=== PATIENT | male | born 1945 | race Caucasian/White ===

== ENCOUNTER → 2018-07-25 | Outpatient (CLI) | payer MEDICARE, BC ==
[~2018-07-25] MED LIST: AMLODIPINE BESYL5 MG PO; CLOPIDOGREL75 MG PO; DOXAZOSIN MESYLA2 MG PO; HYDRALAZINE HCL10 MG PO; HYDROCHLOROTHIA25 MG PO; IOPAMIDOL 370 MG/ML 200 ML INFUS..BTL INJ ONE; NOVOLOG MI100 UNITS/; OMEPRAZOLE40 MG PO; SIMVASTATIN20 MG PO; SODIUM CHLORIDE 0.9% 500ML 500 ML ONE; SODIUM CHLORIDE 0.9% 50ML 50 ML ONE; VASOTEC10 M1 PO
--- NOTE | 2018-07-25 14:03 | Diagnostic Imaging Report ---
EXAMINATION: CT of the abdomen and pelvis with contrast. TECHNIQUE: Spiral CT images of the abdomen and pelvis were performed from the lung bases to the lesser trochanters after the intravenous administration of 100 cc of Isovue-370 and the oral administration of water. Coronal and sagittal reformatted images were obtained. COMPARISON: Abdominal ultrasound 06/06/2015 CLINICAL HISTORY:anemia DISCUSSION: ABDOMEN/PELVIS: LOWER THORAX:Trace left pleural effusion. Pacer or AICD leads partially visualized. HEPATOBILIARY: Subtle nodularity to the external hepatic contour with relative hypertrophy of the left lobe. No focal hepatic lesion. Hepatic parenchyma is diffusely hypoattenuating relative to the spleen, compatible with steatosis. Radiopaque calculus in the dependent portion of the gallbladder without wall thickening or adjacent inflammatory change. SPLEEN: The spleen is enlarged, measuring 17 cm in craniocaudal span area no focal splenic lesion. PANCREAS: No focal masses or ductal dilatation. ADRENALS: No adrenal nodules. KIDNEYS/URETERS: No hydronephrosis, stones, or solid mass lesions. PELVIC ORGANS/BLADDER: Urinary bladder is unremarkable. Mass effect on the right side of the bladder related to reservoir for penile augmentation device. The prostate is enlarged, measuring 5.3 cm transversely. PERITONEUM/RETROPERITONEUM: Small volume. Splenic ascites. No free air. LYMPH NODES: No pelvic sidewall, retroperitoneal, or mesenteric lymphadenopathy. Retroperitoneal and mesenteric lymph nodes are increased in number but not enlarged by CT criteria. VESSELS: Mild atherosclerotic calcification of the abdominal aorta without aneurysmal dilatation. 2 right renal arteries and a single left renal artery. Portal vein, splenic vein, and central superior mesenteric vein are patent. Small esophageal varix is suspected as seen on series 2 image 10. GI TRACT: The large bowel shows no evidence of distention or wall thickening. Gas and fecal material are noted throughout. The appendix is normal. Hyperattenuating focus within the gastric antrum seen on series 2 image 33. No small bowel dilatation to suggest obstruction. BONES AND SOFT TISSUE: No osseous destructive lesions. Postlaminectomy changes with associated degenerative facet arthropathy of the lower lumbar spine. No focal soft tissue abnormalities. IMPRESSION: Findings suggestive of cirrhosis with portal hypertension evidenced by splenomegaly, trace ascites and left pleural effusion, and suspected esophageal varix as detailed above. Background hepatic steatosis. Small hyperdense focus in the gastric antrum may represent ingested contents, though a small polyp is an additional consideration. Upper endoscopy should be considered for further evaluation. Cholelithiasis. Prostatomegaly. Atherosclerotic vascular disease. Signed by: Dr. Oseas Rudolph M.D. on 07/25/2018 1:59 PM
== END ==
LOC: CT 11:49
PROVIDERS: ATTEND Internal Medicine Gastroenterology
DX: D50.9 Iron deficiency anemia, unspecified (principal); I85.00 Esophageal varices without bleeding
CPT/HCPCS: 74177; 96360; J7040; Q9967

== ENCOUNTER 2018-11-01 05:19 | Observation (INO) | payer MEDICARE, BC ==
[~2018-11-01] VITALS: Ht 175.3 cm; Wt 77.1 kg
[2018-11-01] VITALS (7 sets, daily range): BP systolic 119–132; BP diastolic 58–60
[~2018-11-01 05:19] MED LIST changes: -IOPAMIDOL 370 MG/ML 200 ML INFUS..BTL INJ ONE; -SODIUM CHLORIDE 0.9% 500ML 500 ML ONE; -SODIUM CHLORIDE 0.9% 50ML 50 ML ONE
--- OUTSIDE RECORDS SUMMARY | 2018-11-01 05:22 | XMS REPORT ---
Author Author [facility] Address Unknown Phone Unavailable Care Team Providers Care Fur Repairer Name Role Phone ERICKA FORREST Unavailable Unavailable Problems This patient has no known problems. Allergies, Adverse Reactions, Alerts This patient has no known allergies or adverse reactions. Medications This patient has no known medications. Results Test Description Test Time Test Comments Text Results Atomic Results Result Comments CT ABDOMEN/PELVIS W 2018-07-25 13:47:[address] [address] Patient Name: MELI DAVIS JR MR #: [id number] : 1945 Age/Sex: 73/M Req #: [id number] Adm Physician: Ordered by: ERICKA FORREST MD Report #: [id number] Location: CT Room/Bed: Procedure: [id number] CT/CT ABDOMEN/PELVIS W Exam Date: Exam Time: REPORT STATUS: Signed EXAMINATION: CT of the abdomen and pelvis with contrast. TECHNIQ UE: Spiral CT images of the abdomen and pelvis were performed from the lung bases to the lesser trochanters after the intravenous administration of 100 cc of Isovue-370 and the oral administration of water. Coronal and sagittal reformatted images were obtained. COMPARISON: Abdominal ultrasound 06/06/2015 CLINICAL HISTORY:anemia DISCUSSION: ABDOMEN/PELVIS: LOWER THORAX:Trace left pleural effusion. Pacer or AICD leads partially visualized. HEPATOBILIARY: Subtle nodularity to the external hepatic contour with relative hypertrophy of the left lobe. No focal hepatic lesion. Hepatic parenchyma is diffusely hypoattenuating relative to the spleen, compatible with steatosis. Radiopaque calculus in the dependent portion of the gallbladder without wall thickening or adjacent inflammatory change. SPLEEN: The spleen is enlarged, measuring 17 cm in craniocaudal span area no focal splenic lesion. PANCREAS: No focal masses or ductal dilatation. ADRENALS: No adrenal nodules. KIDNEYS/URETERS: No hydronephrosis, stones, or solid mass lesions. PELVIC ORGANS/BLADDER: Urinary bladder is unremarkable. Mass effect on the right side of the bladder related to reservoir for penile augmentation device. The prostate is enlarged, measuring 5.3 cm transversely. PERITONEUM/RETROPERITONEUM: Small volume. Splenic ascites. No free air. LYMPH NODES: No pelvic sidewall, retroperitoneal, or mesenteric lymphadenopathy. Retroperitoneal and mesenteric lymph nodes are increased in number but not enlarged by CT criteria. VE SSELS: Mild atherosclerotic calcification of the abdominal aorta without aneurysmal dilatation. 2 right renal arteries and a single left renal artery. Portal vein, splenic vein, and central superior mesenteric vein are patent. Small esophageal varix is suspected as seen on series 2 image 10. GI TRACT: The large bowel shows no evidence of distention or wall thickening. Gas and fecal material are noted throughout. The appendix is normal. Hyperattenuating focus within the gastric antrum seen on series 2 image 33. No small bowel dilatation to suggest obstruction. BONES AND SOFT TISSUE: No osseous destructive lesions. Postlaminectomy changes with associated degenerative facet arthropathy of the lower lumbar spine. No focal soft tissue abnormalities. IMPRESSION: Findings suggestive of cirrhosis with portal hypertension evidenced by splenomegaly, trace ascites and left pleural effusion, and suspected esophageal varix as detailed above. Background hepatic steatosis. Small hyperdense focus in the gastric antrum may represent ingested contents, though a small polyp is an additional consideration. Upper endoscopy should be considered for further evaluation. Cholelithiasis. Prostatomegaly. Atherosclerotic vascular disease. Signed by: Dr. Hansel Munroe M.D. on 07/25/2018 1:59 PM Dictated By: HANSEL MUNROE MD [id number] Transcribed By: BIRDIE on 07/25/18 1358 COPY TO: ERICKA FORREST MD
[2018-11-01] MEDS ORDERED: PANTOPRAZOLE 40 MG 10ML VIAL IV STA (05:27)
[2018-11-01] MEDS ORDERED: ONDANSETRON HCL INJ 2MG/ML 2ML 2 MG/ML VIAL IV STA (05:27)
[2018-11-01] MEDS ORDERED: DIPHENHYDRAMINE HCL INJ 50 MG/ML VIAL IV ONE (05:30)
[2018-11-01] MEDS ORDERED: METOCLOPRAMIDE HCL 10 MG/2ML VIAL IV ONE (05:30)
[2018-11-01] MEDS ORDERED: SODIUM CHLORIDE 0.9% 500ML 500 ML IV ONE (05:45)
[2018-11-01 05:46] LABS: BASOPHILS % 0.3 % (0.0-1.0); EOSINOPHILS # (AUTO) 0.2 (0.0-0.4); EOSINOPHILS % 3.2 % (0.0-6.0); HEMATOCRIT 35.3 % (38.2-49.6); LYMPHOCYTES # (AUTO) 0.9 (1.0-3.2); LYMPHOCYTES % 13.3 % (18.0-39.1); MEAN CORPUSCULAR HEMOGLOBIN 32.7 pg (28-32); MEAN CORPUSCULAR VOLUME 96.2 fL (81-99); MONOCYTES # (AUTO) 0.5 (0.2-0.8); MONOCYTES % 7.5 % (4.4-11.3); NEUTROPHILS # (AUTO) 4.9 (2.1-6.9); NEUTROPHILS % 75.4 % (38.7-80.0); PLATELET COUNT 104 x10e3/uL (140-360); RED BLOOD COUNT 3.67 x10e6/uL (4.3-5.7); RED CELL DISTRIBUTION WIDTH 13.2 % (11.7-14.4)
[2018-11-01] MEDS ORDERED: SODIUM CHLORIDE 0.9% 500ML 500 ML ONE (05:47)
[2018-11-01] MEDS ORDERED: FUROSEMIDE40 MG PO (05:49)
[2018-11-01] MEDS ORDERED: METOPROLOL TART50 MG PO (05:50)
[2018-11-01] MEDS ORDERED: SPIRONOLACTONE25 MG PO (05:52)
[2018-11-01] MEDS ORDERED: NOVOLOG MI100 UNIT/1 SQ ×2 (05:52)
[2018-11-01] MEDS ORDERED: ACTOS15 MG PO (05:57)
[2018-11-01 05:59] LABS: INR 1.08; PROTHROMBIN TIME 14.5 seconds (11.9-14.5)
[2018-11-01 06:00] LABS: PARTIAL THROMBOPLASTIN TIME 34.1 seconds (23.8-35.5)
[2018-11-01 06:08] LABS: ALBUMIN 3.9 g/dL (3.5-5.0); ANION GAP 14.1 mmol/L (8-16); CALCIUM 9.8 mg/dL (8.4-10.2); CREATININE, SERUM 2.28 mg/dL (0.72-1.25); MAGNESIUM 2.4 MG/DL (1.3-2.1); POTASSIUM 5.1 mmol/L (3.5-5.1)
--- NOTE | 2018-11-01 06:19 | Diagnostic Imaging Report ---
EXAMINATION: CHEST SINGLE (PORTABLE) INDICATION: Pain. Hiccups for a week. COMPARISON: None FINDINGS: TUBES and LINES: None. Dual lead left-sided cardiac pacemaker. LUNGS: Lungs are well inflated. Lungs are clear. There is no evidence of pneumonia or pulmonary edema. PLEURA: No pleural effusion or pneumothorax. HEART AND MEDIASTINUM: The cardiomediastinal silhouette is unremarkable. BONES AND SOFT TISSUES: No acute osseous lesion. UPPER ABDOMEN: No free air under the diaphragm. IMPRESSION: No acute thoracic abnormality. Signed by: Dr. Leonid Cabrera M.D. on 11/01/2018 6:16 AM
[2018-11-01] MEDS ORDERED: BACLOFEN 10 MG TAB PO STA (06:24)
[2018-11-01 06:28] LABS: CREATINE KINASE MB 2.6 ng/mL (0-5.0); THYROID STIMULATING HORMONE 1.686 uIU/mL (0.350-4.940)
[2018-11-01 06:41] LABS: BILIRUBIN,URINE NEGATIVE (NEGATIVE); CLARITY,URINE CLEAR (CLEAR); COLOR,URINE YELLOW (YELLOW); KETONES,URINE NEGATIVE (NEGATIVE); LEUKOCYTE ESTERASE ,URINE NEGATIVE (NEGATIVE); NITRITE,URINE NEGATIVE (NEGATIVE); PROTEIN,URINE DIPSTICK NEGATIVE (NEGATIVE); URINE UROBILINOGEN 0.2 mg/dL (0.2 - 1)
[2018-11-01 07:01] LABS: EPITHELIAL CELLS,URINE RARE /LPF
--- NOTE | 2018-11-01 07:03 | NUR ---
assumed care of pt
[2018-11-01] MEDS ORDERED: ONDANSETRON HCL INJ 2MG/ML 2ML 2 MG/ML VIAL IV PRN (07:15)
[2018-11-01] MEDS ORDERED: DIPHENHYDRAMINE HCL INJ 50 MG/ML VIAL IV PRN (07:15)
[2018-11-01] MEDS ORDERED: SODIUM CHLORIDE 0.9% 1000ML 1,000 ML IV ONE (07:15)
--- NOTE | 2018-11-01 07:22 | NUR ---
second set of blood cx collected and taken to the lab
--- NOTE | 2018-11-01 07:29 | Diagnostic Imaging Report ---
History:Loss of balance. Hiccups for one week. Comparison studies:None Technique: Axial images were obtained from the skull base to the vertex. Coronal and sagittal images reconstructed from the axial data. Intravenous contrast: None Dose modulation, iterative reconstruction, and/or weight based adjustment of the mA/kV was utilized to reduce the radiation dose to as low as reasonably achievable. Findings: Scalp/skull: No abnormalities. Extra-axial spaces: No masses. No fluid collections. Brain sulci: Mildly prominent. Ventricles: Mild compensatory dilatation. No hydrocephalus. Parenchyma: Scattered smallhypodensities in the supratentorial white matter are small vessel ischemic changes. Small chronic lacunar infarcts at the right thalamus, bilateral thalamocapsular region and right posterior name of internal capsule. No masses, hemorrhage, acute or chronic cortical vascular insults. Sellar/suprasellar region: No abnormalities. Craniocervical junction: Patent foramen magnum. No Chiari one malformation. Incidental findings: Atherosclerotic calcifications in the carotid siphons . Impression: No acute abnormalities. Chronic findings: 1. Mild generalized volume loss. 2. Mild supratentorial white matter small vessel ischemic changes. 3. Small chronic lacunar infarcts at the bilateral basal ganglia. Signed by: DR Garry Hernández M.D. on 11/01/2018 7:26 AM
[2018-11-01] MEDS ORDERED: METOCLOPRAMIDE HCL 10 MG TAB PO SCH (07:30)
[2018-11-01] MEDS ORDERED: DIATRIZOATE MEGL/DIATRIZOA SOD 30 ML BTL PO ONE (07:51)
--- NOTE | 2018-11-01 08:35 | NUR ---
Pt is eating breakfast at bedside and has no needs at this time. is at bedside.
[2018-11-01] MEDS ORDERED: PANTOPRAZOLE 40 MG 10ML VIAL IV SCH (09:00)
--- NOTE | 2018-11-01 09:05 | NUR ---
Attempted report, Nurse passing meds and not ready for report
--- NOTE | 2018-11-01 09:36 | NUR ---
Report to SUE Granados
--- NOTE | 2018-11-01 09:45 | NUR ---
RECEIVED PATIENT FROM ER. PATIENT A/O X3, EVEN RESPIRATIONS ON RA. BOWEL SOUNDS ACTIVE, SKIN INTACT, NO EDEMA. PATIENT AMBULATES WITH MINIMAL ASSISTANCE. LEFT FA 20 GAUGE WITH IVF @ 50 CC/HR, INTACT/PATENT. LEFT WRIST 20 GAUGE IV SL INTACT/PATENT. NO PAIN OR DISCOMFORT AT THIS TIME. EDUCATED PATIENT TO CALL FOR ASSISTANCE. CALL LIGHT IN REACH, BED LOW, WHEELS LOCKED, SIDE RAILS X2. WILL CONTINUE TO MONITOR PATIENT.
--- NOTE | 2018-11-01 10:01 | Diagnostic Imaging Report ---
EXAMINATION: CT of the abdomen and pelvis without contrast TECHNIQUE: Spiral CT images of the abdomen and pelvis were performed from the lung bases to the lesser trochanters without intravenous contrast. Gastrografin oral contrast was administered. Lack of intravenous contrast limits evaluation of vascular and visceral structures. Coronal and sagittal reformatted images were obtained. COMPARISON: CT abdomen/pelvis 07/25/2018. CLINICAL HISTORY: Hiccups x1 week. DISCUSSION: LOWER THORAX: Interval resolution of trace left pleural effusion. Partially seen pacemaker leads. HEPATOBILIARY: Subtle nodularity to the external hepatic contour with relative hypertrophy of the left lobe, as before. No evidence of focal hepatic lesion. No evidence of ductal dilatation. Cholelithiasis without CT evidence of cholecystitis. SPLEEN: The spleen is enlarged, measuring up to 16.5 cm. PANCREAS: No focal masses or ductal dilatation. ADRENALS: No adrenal nodules. KIDNEYS/URETERS: No hydronephrosis, stones, or solid mass lesions. PELVIC ORGANS/BLADDER: Urinary bladder is unremarkable. Mass effect on the right side of the bladder secondary to reservoir for penile augmentation device. The prostate is enlarged, measuring 5.3 cm transversely. PERITONEUM/RETROPERITONEUM: Trace upper abdominal ascites. No free air. LYMPH NODES: No evidence of lymphadenopathy. VESSELS: There are scattered atherosclerotic calcifications in the aorta and branch vessels. GI TRACT: No evidence of bowel distention or wall thickening. The appendix is normal. Previously noted hyperattenuating focus within the gastric antrum is not visualized in the absence of intravenous contrast. BONES AND SOFT TISSUE: No acute osseous abnormality. Postlaminectomy changes with associated degenerative facet changes of the lower lumbar spine. IMPRESSION: Findings of cirrhosis with portal hypertension as demonstrated by splenomegaly and trace ascites. Hepatic steatosis. Previously noted hyperdense focus within the gastric antrum is not well-visualized in the absence of IV contrast. Please refer to the prior CT report for further details. Signed by: Dr. Ronit Ireland MD on 11/01/2018 9:58 AM
[2018-11-01] MEDS ORDERED: DEXTROSE 50% SYRINGE 50 ML IV PRN (11:30)
[2018-11-01] MEDS ORDERED: CHLORPROMAZINE HCL INJ 25 MG/ML AMP INJ STA (12:04)
[2018-11-01] MEDS ORDERED: FUROSEMIDE 40 MG TAB PO PRN (12:15)
[2018-11-01] MEDS ORDERED: CHLORPROMAZINE HCL 25 MG TAB PO PRN ×2 (12:15)
[2018-11-01] MEDS: SODIUM CHLORIDE 0.9% 1000ML 1,000 ML IV SCH ×2 (12:15→19:34)
[2018-11-01] MEDS: INSULIN LISPRO 100 UNIT/1 ML 3ML VIAL SQ SCH ×3 (12:49→21:00)
[2018-11-01] MEDS ORDERED: CHLORPROMAZINE HCL INJ 25 MG in SODIUM CHLORIDE 0.9% 50ML 50 ML IV ONE (13:00)
--- NOTE | 2018-11-01 13:25 | Consultation ---
DATE OF CONSULTATION: 11/01/2018 HISTORY OF PRESENT ILLNESS: A 73-year-old gentleman, known to our Nephrology service, underlying history of CKD, admitted with nausea and intractable hiccups. Lying supine. Renal consulted for management of kidney failure. Labs show white count 6.5, hemoglobin 12. Chemistry; sodium 132, potassium 5.1, creatinine 2.28 with a magnesium 2.4. Total bilirubin 1.5, AST of 36 with an alkaline phosphatase of 101. Globulins elevated. Total protein 7.9, lipase 36, and TSH 1686. He is currently lying supine, the only complaint he has is of hiccups. He denies shortness of breath, nausea, vomiting, fever, or chills at this point in time. Further workup includes urinalysis, shows pH 7.5, specific gravity 1.010. Urine microscopy benign. ALLERGIES: TO PENICILLIN. CURRENT MEDICATIONS: The patient is on normal saline 125 mL an hour. He is on baclofen 10 mg p.o. stat. He is on diphenhydramine one time dose, metoclopramide 1 time dose, also on metoclopramide 10 mg p.o. q.a.c. and h.s., Protonix 40 mg IV q.12 h., Zofran p.r.n. SOCIAL HISTORY: The patient does not smoke or drink. FAMILY HISTORY: Significant for hypertension. PAST MEDICAL HISTORY: He has past history of hypertension, chronic kidney disease stage 3, GERD, type 2 diabetes, hyperlipidemia. HOME MEDICATIONS: Include spironolactone, simvastatin, pioglitazone, pantoprazole, metoprolol, hydralazine, doxazosin, furosemide p.r.n. PHYSICAL EXAMINATION: GENERAL: Awake, alert. IMPRESSION AND PLAN: Acute on chronic kidney failure, mild hyperkalemia, intractable hiccups. I will discontinue Reglan for fear of interaction. Continue with normal saline at 100 mL an hour, place on a renal diet. We will obtain clinic records. MD ALMA Paredes/DYAN /[id number]
[2018-11-01 13:49] LABS: CREATINE KINASE MB 3.1 ng/mL (0-5.0)
[2018-11-01] MEDS: HYDRALAZINE HCL 10 MG TAB PO SCH (16:15)
[2018-11-01] MEDS: METOPROLOL TARTRATE 50 MG TAB PO SCH (16:16)
[2018-11-01] MEDS ORDERED: ENOXAPARIN SOD INJ 40 MG/0.4 ML SYR SC SCH (17:00)
--- NOTE | 2018-11-01 17:01 | History and Physical ---
CHIEF COMPLAINT: Abdominal pain, hiccups. HISTORY OF PRESENT ILLNESS: This is 73-year-old male. He reports known history of acid reflux and hypertension, who has been following up with a primary care physician as an outpatient as well as a liver specialist for liver cirrhosis, who presents to the ED with underlying hiccups, abdominal distention and weight loss. The patient reports he sees Dr. Coombs, who is his GI specialist, for the liver cirrhosis of unknown etiology. He reports having significant amount of hiccups as well over the last several days and has difficulty with his appetite. He reports losing approximately 30 pounds over the last one month. He did see the GI specialist two months ago, but did not tell him the cause or etiology of his liver cirrhosis. The patient was seen and evaluated at bedside on the medical floor. He is currently doing well. He has no other complaints at this current moment. Imaging studies consistent with liver cirrhosis and splenomegaly. I have discussed these findings with the patient at bedside with the nurse present. REVIEW OF SYSTEMS: Pertinent positives: Hiccups, abdominal distention, weight loss. Pertinent negatives: Denies any chest pain, palpitation, nausea, vomiting, diarrhea, dysuria, hematuria, frequency, urgency, lightheadedness, dizziness, abdominal pain, headaches, shortness of breath, cough, congestion, fever, or any other complaints. The rest of 14-point review of systems have been reviewed with the patient and are negative. ALLERGIES: PENICILLIN. HOME MEDICATIONS: Doxazosin 1 mg daily, furosemide 40 mg daily, hydralazine 10 mg b.i.d., metoprolol 50 mg b.i.d., omeprazole 40 mg daily, Actos 15 mg daily, simvastatin 20 mg daily, and Aldactone 100 mg daily. PAST MEDICAL HISTORY: Type 2 diabetes, hypertension, liver cirrhosis of unknown etiology. PAST SURGICAL HISTORY: Reports none. FAMILY HISTORY: Hypertension and diabetes. SOCIAL HISTORY: No drugs. No alcohol. Does not smoke. He is . Good social support. PHYSICAL EXAMINATION: VITAL SIGNS: Temperature is 95.2, pulse 68, respiratory rate is 18, blood pressure is 132/60, and pulse ox is 100% on room air. GENERAL: Not in acute distress. Alert and oriented x3. Cooperative on examination. HEENT: Head is normocephalic and atraumatic. Eyes; pupils are equal, round, and reactive to light bilaterally. Extraocular movements are intact bilaterally. Throat, no evidence of erythema or exudates in the posterior pharynx. Has poor dentition. NECK: Supple. Good range of motion. PULMONARY: Clear to auscultation bilaterally. No wheezing, no rales, no rhonchi, no crackles appreciated. CARDIOVASCULAR: Positive S1, S2. No murmurs, rubs, or gallops appreciated. ABDOMEN: Soft, nondistended, and nontender to palpation. Bowel sounds present. MUSCULOSKELETAL: Strength is 5/5 throughout. No evidence of any muscle deficits on examination. No weakness appreciated. NEUROLOGICAL: Cranial nerves 2 through 12 grossly intact. No evidence of any neurological deficits on exam. SKIN: Intact. Warm to touch. Good cap refill. PSYCHIATRIC: Normal affect and mood. EXTREMITIES: No edema. Good range of motion throughout. LABORATORY DATA: Labs show white count 6.5, hemoglobin 12, hematocrit is 35, platelets of 104. Coagulation; PT 14, INR 1, PTT 34. Chemistry; sodium 133, potassium 5.1, chloride 99, bicarb 24, anion gap of 14, BUN 21, creatinine is 2.2, glucose 119, lactic acid is 12 and normal, calcium 9.8, magnesium 2.4. Total bilirubin is 1.5, AST 36, ALT 28, alkaline phosphatase is 101. Troponins are negative. Albumin 3.9, lipase 36, amylase 62. TSH 1.6. Urinalysis negative. MICROBIOLOGY: Blood and urine cultures are pending. IMAGING STUDIES: Chest x-ray found to be negative. CT brain negative for any acute findings. CT abdomen and pelvis without contrast shows findings of cirrhosis with portal hypertension as demonstrated by splenomegaly and trace ascites. Hepatic steatosis. Previously noted hyperdense focus within the gastric antrum is not well visualized please refer to prior CTs for further details. IMPRESSION: 1. Liver cirrhosis with underlying splenomegaly, unknown etiology. 2. Hiccups likely due to underlying ascites. 3. Stage 4 chronic kidney disease. 4. Type 2 diabetes. 5. Hypertension. PLAN: At this time, from a liver cirrhosis standpoint, GI has been consulted. The etiology of his cirrhosis is unknown. Apparently, he has been following up with GI specialist as an outpatient and was not told. We will get a GI specialist here to evaluate him closely. He also endorses significant weight loss over the last one month. He does endorse having EGD and colonoscopy two months ago at Dr. Coombs's office. At this time, we will see if GI can help us further on this patient's case. He does have underlying CKD in which we will go ahead and get Nephrology to evaluate him closely. There is no evidence of any hiccups this morning, in the event it does, I have told the nurse to call me. We can start him on Thorazine. Continue insulin sliding scale, Accu-Cheks, A1c for underlying diabetes. Monitor blood pressure closely. PT and OT daily. Lovenox for DVT prophylaxis. MD JORDY Benitez/DYAN /[id number]
--- NOTE | 2018-11-01 19:37 | NUR ---
Received patient in bed aaox3. No resp distress at this time. Denies pain. Call light within reach and instructed to call for assistance. Patient verbalized understanding.
[2018-11-01 19:50] LABS: CREATINE KINASE MB 2.6 ng/mL (0-5.0)
[2018-11-01] MEDS ORDERED: SIMVASTATIN 20 MG TAB PO SCH (21:00)
[2018-11-02 00:15] VITALS: BP 122/58
[2018-11-02 04:12] VITALS: BP 140/60
[2018-11-02] MEDS: SODIUM CHLORIDE 0.9% 1000ML 1,000 ML IV SCH (05:19)
[2018-11-02 05:31] LABS: EOSINOPHILS # (AUTO) 0.1 (0.0-0.4); HEMATOCRIT 30.4 % (38.2-49.6); HEMOGLOBIN 10.4 g/dL (14.0-18.0); LYMPHOCYTES % 24.9 % (18.0-39.1); MEAN CORPUSCULAR HEMOGLOBIN 33.4 pg (28-32); MEAN CORPUSCULAR HGB CONC 34.2 g/dL (31-35); MEAN CORPUSCULAR VOLUME 97.7 fL (81-99); MONOCYTES # (AUTO) 0.4 (0.2-0.8); MONOCYTES % 10.3 % (4.4-11.3); NEUTROPHILS # (AUTO) 2.4 (2.1-6.9); NEUTROPHILS % 60.5 % (38.7-80.0); PLATELET COUNT 82 x10e3/uL (140-360); RED BLOOD COUNT 3.11 x10e6/uL (4.3-5.7); RED CELL DISTRIBUTION WIDTH 13.2 % (11.7-14.4)
[2018-11-02 05:46] LABS: ALBUMIN 3.4 g/dL (3.5-5.0); ANION GAP 10.7 mmol/L (8-16); CALCIUM 9.1 mg/dL (8.4-10.2); CREATININE, SERUM 2.15 mg/dL (0.72-1.25); POTASSIUM 4.7 mmol/L (3.5-5.1)
[2018-11-02] MEDS ORDERED: PANTOPRAZOLE SOD 40 MG TABEC PO SCH (07:30)
[2018-11-02] MEDS: INSULIN LISPRO 100 UNIT/1 ML 3ML VIAL SQ SCH (08:15)
[2018-11-02] MEDS: HYDRALAZINE HCL 10 MG TAB PO SCH (08:37)
[2018-11-02] MEDS: METOPROLOL TARTRATE 50 MG TAB PO SCH (08:37)
[2018-11-02] MEDS ORDERED: PIOGLITAZONE HCL 15 MG TAB PO SCH (09:00)
[2018-11-02] MEDS ORDERED: SPIRONOLACTONE 25 MG TAB PO SCH ×2 (09:00)
[2018-11-02] MEDS ORDERED: DOXAZOSIN MESYLATE 2 MG TAB PO SCH (09:00)
[2018-11-02] MEDS ORDERED: FUROSEMIDE 40 MG TAB PO SCH (09:00)
[2018-11-02 09:32] VITALS: BP 145/68
[2018-11-02 09:37] VITALS: BP 145/68
[2018-11-02 09:38] VITALS: BP 145/68
--- NOTE | 2018-11-02 10:29 | NUR ---
IMM ON CHART
--- NOTE | 2018-11-02 12:25 | Consultation ---
DATE OF CONSULTATION: 11/02/2018 HISTORY OF PRESENT ILLNESS: This is a 73 years old, who supposedly has history of reflux, hypertension, and history of cirrhosis, who presented to the hospital apparently because of problem with the hiccups. The patient denies any abdominal pain, nausea, or vomiting. He apparently has some weight loss. His workup so far revealed that he has pancytopenia and renal insufficiency. His CAT scan shows significance of cirrhosis with portal hypertension. He apparently had an EGD and colonoscopy by Dr. Coombs about two months ago and he did have abdominal ultrasounds from May, which shows splenomegaly and fatty liver. He is currently doing better, hiccups is totally resolved. PAST MEDICAL HISTORY: Significant for history of cirrhosis and probably grade 2 fatty liver, history of acid reflux, history of hypertension. He also has history of diabetes. ALLERGIES: PENICILLIN. SOCIAL HISTORY: No alcohol use. MEDICATIONS: On admission including doxazosin, Lasix, hydralazine, metoprolol, omeprazole, Actos, simvastatin, and Aldactone. FAMILY HISTORY: Hypertension and diabetes. REVIEW OF SYSTEMS: He denies any chest pain. Denies any shortness of breath. Denies any dysphagia or odynophagia. Denies any dysuria, hematuria, or any kind of syncopal episode. PHYSICAL EXAMINATION: GENERAL: The patient is awake, alert, appears to be stable, not in acute distress at this point. VITAL SIGNS: Afebrile currently with stable vital signs. HEAD, EYES, EARS, NOSE, AND THROAT: Normocephalic. Sclera is anicteric. NECK: Supple. HEART: Regular. LUNGS: Clear. ABDOMEN: Soft. There is no distention at this point and is nontender. EXTREMITIES: No cyanosis. No clubbing. LAB VALUES: PT 14.5, INR 1.08. BUN of 35, creatinine of 2.15, bilirubin 1.6. AST and ALT are normal. WBC of 3.97, hemoglobin of 10.4, hematocrit of 30.4, platelet count of 82. CT scan of the abdomen and pelvis shows evidence of cirrhosis with portal hypertension. IMPRESSION: 1. Hiccups, seems to be resolved at this point. 2. History of cirrhosis probably secondary to fatty liver. 3. History of reflux. RECOMMENDATION: Continue on current care at this point with PPIs. Follow labs and clinically. The patient should be able to go home soon if no more problem. MD JOHN Yeager/DYAN /[id number] cc: MD Blayne Benitez MD
[2018-11-02 13:53] VITALS: BP 157/72
[2018-11-02] MEDS ORDERED: ONDANSETRON HCL 4 MG ORAL DISINTEGRATING TAB PO PRN (15:15)
--- NOTE | 2018-11-03 04:44 | Discharge Summary ---
FINAL DISCHARGE DIAGNOSES: 1. Liver cirrhosis secondary to fatty liver with underlying splenomegaly. 2. Hiccups secondary likely due to ascites, now all improved. 3. Stage IV chronic kidney disease. 4. Type 2 diabetes. 5. Hypertension. 6. Thrombocytopenia. CONSULTANTS: GI and Nephrology. PHYSICAL EXAMINATION: VITAL SIGNS: Temperature is 96.9, pulse 86, respiratory rate is 20, blood pressure 157/70, pulse ox 99% on room air. LAB FINDINGS: Show a white count of 3.9, hemoglobin 10.4, hematocrit 30, platelets of 82. Coagulation, PT 14, INR 1, PTT 34. Chemistry; sodium 133, potassium 4.7, chloride 106, bicarb 24, anion gap of 10, BUN is 35, creatinine is 2.1, glucose is 130, calcium 9.1, total bilirubin was 1.6. LFTs were normal. Troponins were negative. Albumin 3.4, lipase is 36. TSH is 1.6. Urinalysis was negative. MICROBIOLOGY: Blood cultures were negative. Urine cultures were negative. Chest x-rays were negative. CT brain was found to be negative. CT abdomen and pelvis without contrast shows findings with cirrhosis with portal hypertension as demonstrated by splenomegaly and trace ascites. Hepatic steatosis. He does have some questionable hyperdense focus with gastric antrum. He has been followed up with GI as an outpatient and had recent EGD. I would recommend for him to follow up as an outpatient with his GI specialist and he verbalized understanding. HOSPITAL COURSE: This is 73-year-old male, came into the ED with complaints of underlying hiccups, worsening abdominal distention. The patient was recently diagnosed with liver cirrhosis 2 months ago by [facility], Dr. Gibson. He now presents to the ED with complaints of hiccups ongoing for the last week. GI is consulted for further evaluation and management. It was felt his underlying liver cirrhosis is likely due to fatty liver. No further workup was needed. Previously had an EGD, colonoscopy [address] Gibson, when he was advised to follow up as an outpatient by GI. He also came in with acute kidney injury secondary to dehydration, which resolved with IV fluid hydration. Nephrology was consulted. The patient was cleared for discharge by all consultants. All workup has been found to be negative and no further workup was needed. On the day of discharge, vital signs stable, labs were reviewed and stable. The patient was seen, evaluated, and examined thoroughly on the day of discharge. No other complaints. The patient verbalized understanding and agreed to plan of care in 2 weeks' time. MEDICATIONS: See med reconciliation form. DISPOSITION: Home. CONDITION: Stable. DIET: Heart healthy. In the event of any worsening symptoms, the patient was advised to come back to the ED for further evaluation. Discharge summary took greater than 35 minutes. MD JORDY Benitez/MODL /[id number]
== END 2018-11-02 15:29 | disposition home or self-care (01) ==
LOC: ER 05:19 → INTOOBSV 07:07 → ERHOLD 07:07 → MED/SURG 09:45
PROVIDERS: ADMIT Internal Medicine; ATTEND Internal Medicine
DX: K74.60 Unspecified cirrhosis of liver (principal); R06.6 Hiccough; E11.22 Type 2 diabetes mellitus with diabetic chronic kidney disease; I12.9 Hypertensive chronic kidney disease with stage 1 through stage 4 chronic kidney disease, or unspecified chronic kidney disease; N18.4 Chronic kidney disease, stage 4 (severe)
CPT/HCPCS: 36415 ×2; 70450; 71045; 74176; 80053 ×2; 81001; 82150; 82550; 82553; 82948 ×2; 83605; 83690; 83735; 84443; 84484; 85025 ×2; 85610; 85730; 87040; 87086; 93005; 96374; 97161; 99284; C9113; G0378 ×2; J1200; J1650; J2765; J3230; J7030 ×2; J7040; J8597; S0164

== ENCOUNTER → 2019-02-17 | Outpatient (CLI) | payer MEDICARE, BC ==
[~2019-02-17] MED LIST changes: +ACTOS15 MG PO; +FUROSEMIDE40 MG PO; +METOPROLOL TART50 MG PO; +NOVOLOG MI100 UNIT/1 SQ; +SPIRONOLACTONE25 MG PO
--- NOTE | 2019-02-20 09:10 | Diagnostic Imaging Report ---
#[id number] - USBRELIMRT ULTRASOUND OF THE RIGHT BREAST : 02/17/2019 Comparison is made to exam dated: 02/17/2019 mammogram - [facility]. Real-time ultrasound was performed on the right breast. There is gynecomastia. There are no solid or cystic masses identified. IMPRESSION: BENIGN There is no sonographic evidence of malignancy. CY GOMEZ M.D. 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 letter sent: Normal Exam Ultrasound BI-RADS: 2 Benign
--- NOTE | 2019-02-20 09:10 | Diagnostic Imaging Report ---
#[id number] - MGDXBIL #MALE BILATERAL DIGITAL DIAGNOSTIC MAMMOGRAM WITH CAD: 02/17/2019 No prior exams were available for comparison. Current study contains 5 films. Current study was also evaluated with a Computer Aided Detection (CAD) system. There is bilateral gynecomastia. Benign appearing calcifications are noted bilaterally. Left breast postop changes are present. No significant masses, calcifications, or other findings are seen in either breast. IMPRESSION: BENIGN See the report for ultrasound performed the same day for additional details. There is no mammographic evidence of malignancy. Follow-up with ACR/ACS guidelines. The patient will be notified by letter of the results. CY GOMEZ M.D. ct/:02/17/2019 11:31:15 Kindergarten Teacher Assistant: Sharda HERNANDEZ)([place]), [facility] letter sent: Normal Exam Mammogram BI-RADS: 2 Benign
== END ==
LOC: MAMMO 10:06
PROVIDERS: ATTEND Internal Medicine
DX: N64.89 Other specified disorders of breast (principal)
CPT/HCPCS: 77066